=== PATIENT | female | born 1955 | race Two or more races ===

== ENCOUNTER → 2016-12-07 | Outpatient (CLI) | payer OTHER ==
[~2016-12-07] VITALS: Ht 160 cm; Wt 90.7 kg
[~2016-12-07] MED LIST: OMEPRAZOLE40 M1 ORAL; QUINAPRIL HCL10 MG PO; URSODIOL300 MG ORAL; [UNRECOGNIZED DRUG - REMARK] PO
[2016-12-07 08:50] LABS: BASOPHILS % (AUTO) 1.3 % (0.0-2.0); EOSINOPHILS % (AUTO) 3.3 % (0.0-3.0); LYMPHOCYTES % (AUTO) 35.7 % (20.0-45.0); MEAN CORPUSCULAR HEMOGLOBIN 28.8 PG (27.0-31.0); MEAN CORPUSCULAR HGB CONC 31.5 G/DL (32.0-36.0); MEAN CORPUSCULAR VOLUME 92 FL (80-99); MEAN PLATELET VOLUME 7.5 FL (6.5-10.1); MONOCYTES % (AUTO) 7.1 % (1.0-10.0); NEUTROPHILS % (AUTO) 52.6 % (45.0-75.0); PLATELET COUNT 194 K/UL (150-450); WHITE BLOOD COUNT 4.7 K/UL (4.8-10.8)
[2016-12-07 09:03] LABS: INR 1.1 (0.9-1.1); PROTHROMBIN TIME 10.9 SEC (9.30-11.50)
[2016-12-07 09:16] VITALS: BP 123/78
[2016-12-07 12:55] VITALS: BP 133/80
--- NOTE | 2016-12-07 13:33 | Diagnostic Imaging Report ---
Indications: Abdominal distention Technique: Transabdominal real-time grayscale and duplex Doppler imaging of the upper abdomen and retroperitoneum was performed. Findings: Comparison: None. Liver 17 cm in length, and suggestion of mild surface contour nodularity. Diffusely coarsened parenchymal echogenicity. No focal lesions. Gallbladder unremarkable. No intraluminal stones or sludge. No mural thickening or adjacent fluid collections. Sonographic Reyes sign not reported.. Bile ducts normal caliber. Common bile duct 5 mm. Pancreas visualized portions unremarkable. Spleen unremarkable. Right kidney unremarkable. Left kidney unremarkable. Abdominal aorta, intrahepatic portion of inferior vena cava patent, normal caliber. Duplex Doppler imaging demonstrates antegrade flow in splenic, portal, hepatic veins. No ascites. IMPRESSION: Coarsened liver echotexture compatible with chronic hepatocellular disease. Apparent surface contour nodularity suggests cirrhosis. Remainder of exam unremarkable.
== END | disposition home or self-care (01) ==
LOC: ULS 08:24
DX: K76.0 Fatty (change of) liver, not elsewhere classified (principal); R14.0 Abdominal distension (gaseous)
CPT/HCPCS: 36415; 76700; 82962; 85025; 85610; 85730

== ENCOUNTER 2016-12-20 08:34 | Outpatient (CLI) | payer OTHER ==
[2016-12-20] VITALS (18 sets, daily range): BP systolic 123–149; BP diastolic 73–92
[~2016-12-20] VITALS: Ht 160 cm; Wt 59.9 kg
[2016-12-20] MEDS ORDERED: GLIMEPIRIDE1 MG ORAL (09:11)
[2016-12-20] MEDS ORDERED: Midazolam 2mg/2ml Inj ONE (10:28)
[2016-12-20] MEDS ORDERED: fentaNYL 100 mcg/2 mL IV ONE (10:28)
--- NOTE | 2016-12-20 11:09 | Pre-Procedure Note/Attestation ---
Pre-Procedure Note/Attestation Complete Prior to Procedure Planned Procedure: not applicable Procedure Narrative: US guided liver biopsy Indications for Procedure Pre-Operative Diagnosis: fatty liver Attestation I attest that I discussed the nature of the procedure; its benefits; risks and complications; and alternatives (and the risks and benefits of such alternatives ), prior to the procedure, with the patient (or the patient's legal marketing development representative). I attest that, if there was a reasonable possibility of needing a blood transfusion, the patient (or the patient's legal marketing development representative) was given the [facility] standardized written summary, pursuant to the [place] Blood Safety Act ([place] Health and Safety Code # 1645, as amended). I attest that I re-evaluated the patient just prior to the surgery and that there has been no change in the patient's H&P, except as documented below: NORRIS NIXON M.D. December 20, 2016 11:09
--- NOTE | 2016-12-20 11:10 | Moderate Sedation - Procedural ---
Moderate Sedation HPI Chief Complaint Fatty liver HPI Fatty liver Home Medication Reported Medications Glimepiride* (GLIMEPIRIDE*) 1 Mg Tablet, 1 MG ORAL BEFORE BREAKFAST, TAB 12/20/16 Ursodiol (URSODIOL*) 300 Mg Capsule, 300 MG ORAL TWICE A DAY, #30 CAP 0 Refills 12/07/16 Quinapril Hcl (QUINAPRIL HCL) 10 Mg Tablet, 10 MG PO DAILY, TAB 12/07/16 Omeprazole (OMEPRAZOLE) 40 Mg Capsule.dr, 40 MG ORAL DAILY, CAP 12/07/16 Patient History Allergies: Coded Allergies: No Known Allergies (Unverified , 12/07/16) PAST MEDICAL HISTORY: Past Surgeries: Social History: Pre-Procedural Mod Sedation Pre-Assessment Time: 11:00 Pre-Sedation Assessment: Elective Airway Assessment (Malampati): III Evaluation Hx of untoward rxns to mod sed: No Procedures/Plans: Radiology Plan for Moderate Sedation: Midazolam, Fentanyl ASA Score: I Informed Consent The nature of the procedure/sedation; its benefits; risks and complications; and alternatives (and the risks and benefits of such alternatives) were discussed with the patient (or their legal bilingual call center representative), prior to the procedure. All questions were answered to the patient's (or their legal bilingual call center representative's) satisfaction and the patient (or their legal bilingual call center representative) gave informed consent to the procedure. I attest that I re-evaluated the patient just prior to the surgery and that there has been no change in the patient's H&P, except as documented below: Post Procedure Assessment Post Procedure TIme: 12:00 Communication: No Apparent Limitation Mental Status: Awake Respiration: Unlabored Skin Condition: WNL Adomen: WNL Nausea: NO Vomiting: NO NORRIS NIXON M.D. December 20, 2016 11:10
[2016-12-20] MEDS ORDERED: Norco 5mg/325mg tab ORAL PRN ×2 (12:30)
[2016-12-20] MEDS ORDERED: Morphine Sulfate 2mg/ml Inj IVP PRN (12:30)
--- NOTE | 2016-12-20 12:37 | Diagnostic Imaging Report ---
Indication: Fatty liver, a research study patient Technique: Informed consent obtained prior to commencement of the procedure. Procedural timeout performed. Ultrasound used to localize optimal puncture site. Sterile prepping and draping. Local anesthesia, both superficial and deep, with 1% lidocaine. A under real-time ultrasound guidance, total 3 needle passes made into the right hepatic lobe using 16-gauge automated biopsy gun. 3 passes used, due to suboptimal visualization of the needle on each pass due to patient body habitus. Specimens placed in formalin. The patient tolerated the procedure well, without immediate complication. Intraprocedural sedation and analgesia effected using fentanyl and Versed Comparison: None Findings: As above Impression: Apparently successful right lobe liver biopsy for parenchymal disease, as described. Final pathology pending
== END 2016-12-20 15:30 | disposition home or self-care (01) ==
LOC: ULS 08:34
DX: K76.0 Fatty (change of) liver, not elsewhere classified (principal)
CPT/HCPCS: 47000; 76942; 82962; J2250; J3010

== ENCOUNTER 2017-06-14 08:12 | Outpatient (CLI) | payer OTHER ==
[~2017-06-14 08:12] MED LIST changes: +GLIMEPIRIDE1 MG ORAL
[2017-06-14 08:47] LABS: CREATININE 0.6 MG/DL (0.55-1.30); GLOMERULAR FILTRATION RATE > 60 mL/min (>60)
--- NOTE | 2017-06-20 14:52 | Diagnostic Imaging Report ---
Indication: Hypoechoic nodule in left hepatic lobe seen on prior ultrasound Technique: Patient ingested oral contrast. Multiphasic spiral acquisitions obtained through the abdomen . Multiplanar reconstructions were generated. Total dose length product 1717 mGycm. CTDIvol(s) 13, 8, 8, 13, 13, 13 mGy. Radiation dose was minimized using automated exposure control Comparison: None. Note that there is a report available of prior outside images performed at [facility] dated 06/07/2017 describing a 9 mm left lobe liver lesion. A provided CD only contains images of a liver biopsy performed on that date. Findings: The liver demonstrates occasional areas of surface nodularity, most notably in the inferior right hepatic lobe. On the arterial phase images, segment 6 demonstrates a wedge shaped area of very slightly increased enhancement with an associated prominent vessel. No corresponding abnormality demonstrated on the subsequent phases. No focal abnormality is demonstrated that would correspond with the findings described in report of the recent ultrasound. The liver demonstrates normal attenuation on the precontrast images. The gallbladder and bile ducts are unremarkable The pancreas demonstrates a 4 mm diameter fat attenuation lesion in the body tail junction. The spleen and adrenals are unremarkable. There is unusual finding of dense material within the bilateral renal collecting systems on the precontrast images. Layering of this dependently suggested this is liquid, as excreted contrast, rather than calculi. No definite calculi are evident. The kidneys and renal collecting systems are otherwise unremarkable no focal mass demonstrated. No hydronephrosis or proximal hydroureter demonstrated. No retroperitoneal or mesenteric mass or adenopathy demonstrated. The appendix is included in the imaging volume, appears normal. The visualized portions of colon and small bowel appear unremarkable. Numerous ill-defined opacities are seen in the bilateral upper buttock subcutaneous fat The included lung bases demonstrate minimal posterior dependent atelectatic changes. The bones are unremarkable. Impression: CT images do not demonstrate any focal abnormality in the left hepatic lobe that would correspond to the abnormalities described on prior outside ultrasound study. However, outside sonogram describing 9 mm left lobe liver lesion is not available for comparison. If this can be made available, please do so and and an addendum report will be issued. Wedge-shaped area of slightly increased contrast enhancement, on the arterial phase images only, in the periphery of segment 6, most likely an area of arterioportal shunting Hepatic surface nodularity, consistent with known history of cirrhosis 4 mm lipoma within the pancreas Unusual finding of what appears to be a small amount of contrast within the renal collecting systems on the precontrast images. Suspect that this reflects some renal excretion of oral contrast that was absorbed by the small bowel. 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 Siddiqui at the time of interpretation The CT scanner at [facility] is accredited by the [employer] and the scans are performed using protocols designed to limit radiation exposure to as low as reasonably achievable to attain images of sufficient resolution adequate for diagnostic evaluation.
== END 2017-06-14 10:12 | disposition home or self-care (01) ==
LOC: CAT 08:12
DX: K76.0 Fatty (change of) liver, not elsewhere classified (principal)
CPT/HCPCS: 36415; 74170; 82565; 84520; Q9967

== ENCOUNTER 2017-09-19 09:01 | Emergency (ER) | payer SELFPAY ==
[~2017-09-19] VITALS: Ht 160 cm; Wt 63.5 kg
[2017-09-19 09:40] VITALS: BP 136/78
[2017-09-19 10:05] LABS: APPEARANCE,URINE CLEAR; BILIRUBIN, URINE NEGATIVE (NEGATIVE); COLOR,URINE PALE YELLOW; GLUCOSE, URINE (UA) NEGATIVE (NEGATIVE); KETONES,URINE NEGATIVE (NEGATIVE); LEUKOCYTE ESTERASE ,URINE NEGATIVE (NEGATIVE); NITRITE,URINE NEGATIVE (NEGATIVE); PH,URINE 6.5 (4.5-8.0); PROTEIN,URINE NEGATIVE (NEGATIVE); UROBILINOGEN,URINE NORMAL MG/DL (0.0-1.0)
[2017-09-19 10:07] LABS: BASOPHILS % (AUTO) 1.4 % (0.0-2.0); EOSINOPHILS % (AUTO) 2.5 % (0.0-3.0); HEMATOCRIT 44.4 % (37.0-47.0); HEMOGLOBIN 14.1 G/DL (12.0-16.0); LYMPHOCYTES % (AUTO) 38.7 % (20.0-45.0); MEAN CORPUSCULAR VOLUME 90 FL (80-99); MONOCYTES % (AUTO) 7.9 % (1.0-10.0); NEUTROPHILS % (AUTO) 49.5 % (45.0-75.0); PLATELET COUNT 182 K/UL (150-450); RED BLOOD COUNT 4.93 M/UL (4.20-5.40); RED CELL DISTRIBUTION WIDTH 12.5 % (11.6-14.8); WHITE BLOOD COUNT 4.6 K/UL (4.8-10.8)
[2017-09-19 10:13] LABS: ANION GAP 5 mmol/L (5-15); BLOOD UREA NITROGEN 15 mg/dL (7-18); CARBON DIOXIDE 28 MMOL/L (21-32); CHLORIDE 104 MMOL/L (98-107); CREATININE 0.5 MG/DL (0.55-1.30); SODIUM 137 MMOL/L (136-145)
--- NOTE | 2017-09-19 10:13 | Emergency Room Report ---
History of Present Illness General Chief Complaint: Abdominal Pain Source: Patient Present Illness HPI [id number] Sent from primary care doctor for her ultrasound of right upper quadrant, liver complaining of pain to right upper quadrant for 2 weeks Had biopsy done 4 months ago, states she was told she has "grease" in the liver. ?fatty liver. has NAFLD documented in chart but no associated written charts. Per EMR, December 2016 liver biopsy States also "liver marker" test is 14. Denies nausea/vomiting, diarrhea Allergies: Coded Allergies: No Known Allergies (Unverified , 12/07/16) Patient History Past Medical History: none Past Surgical History: none Pertinent Family History: none Social History: Denies: smoking, alcohol use, drug use Last Menstrual Period: na Now: No Immunizations: UTD Reviewed Nursing Documentation: PMH: Agreed, PSxH: Agreed Nursing Documentation-PMH Past Medical History: No History, Except For Hx Cardiac Problems: Yes Hx Hypertension: Yes Hx Diabetes: Yes - TYPE 2 Hx Cancer: No Hx Gastrointestinal Problems: Yes Hx Neurological Problems: No Review of Systems All Other Systems: negative except mentioned in HPI Physical Exam Vital Signs Date Time Temp Pulse Resp B/P (MAP) Pulse Ox O2 Delivery O2 Flow Rate FiO2 09/19/17 09:07 97.9 68 18 144/85 98 Room Air Sp02 EP Interpretation: reviewed, normal General Appearance: normal inspection, well appearing, no apparent distress, alert, GCS 15, non-toxic Head: normocephalic, atraumatic Eyes: bilateral eye PERRL, bilateral eye EOMI ENT: normal ENT inspection, hearing grossly normal, normal pharynx, no angioedema, normal voice, TMs + canals normal, uvula midline, moist mucus membranes Neck: normal inspection, full range of motion, supple, thyroid normal, no meningismus, no bony tend Respiratory: normal inspection, lungs clear, normal breath sounds, no rhonchi, no respiratory distress, no retraction, no accessory muscle use, no wheezing, speaking full sentences Cardiovascular #1: regular rate, rhythm, no edema, no JVD, normal capillary refill Gastrointestinal: normal inspection, normal bowel sounds, soft, no mass, no peritonitis, non-distended, no guarding, no hernia, no pulsatile mass, other - Right upper quadrant tenderness to palpation Genitourinary: no CVA tenderness Musculoskeletal: normal inspection, back normal, normal range of motion, no calf tenderness, pelvis stable, Owen's Sign negative Neurologic: normal inspection, alert, oriented x3, responsive, ems director III-XII nml as tested, motor strength/tone normal, cerebellar normal, normal gait, speech normal Psychiatric: normal inspection, judgement/insight normal, mood/affect normal, no suicidal/homicidal ideation, no delusions Skin: normal inspection, normal color, no rash Lymphatic: normal inspection, no adenopathy Medical Decision Making Diagnostic Impression: Primary Impression: RUQ abdominal pain Additional Impression: Cirrhosis Qualified Codes: K74.60 - Unspecified cirrhosis of liver ER Course Ultrasound today shows hepatic cirrhosis Patient denies previous ETOH abuse, hepatitis Labs with mild LFT abnormalities - nothing requiring acute hospitalization/ management currently Printed copies of both for patient to bring to her PMD for followup ER course: Patient has remained stable during ED stay. Disposition: Patient is to be discharged to home. Patient is instructed to follow up with their primary care doctor within 1-2 days Strict return precautions discussed with patient such as fever, chills, worsening/severe pain, nausea, vomiting, which may indicate severe illness. Patient verbalizes understanding and agrees with plan. Please note that this Emergency Department Report was dictated using [employer] splitter technology software, occasionally this can lead to erroneous entry secondary to interpretation by the dictation equipment Rhythm Strip Diag. Results EP Interpretation: yes Rate: 70 Rhythm: NSR, no PVC's, no ectopy Last Vital Signs Date Time Temp Pulse Resp B/P (MAP) Pulse Ox O2 Delivery O2 Flow Rate FiO2 09/19/17 09:40 97.9 68 19 136/78 99 Room Air Status: improved Disposition: HOME, SELF-CARE Referrals: AZEB SEAMAN (PCP) EJS MARY M.D. Sep 19, 2017 10:13
[2017-09-19 10:17] LABS: ALANINE AMINOTRANSFERASE 87 U/L (12-78); ALBUMIN 3.6 G/DL (3.4-5.0); ALBUMIN/GLOBULIN RATIO 0.9 (1.0-2.7); ALKALINE PHOSPHATASE 133 U/L (46-116); ASPARTATE AMINO TRANSFERASE 48 U/L (15-37); BILIRUBIN,TOTAL 0.6 MG/DL (0.2-1.0)
--- NOTE | 2017-09-19 11:28 | Diagnostic Imaging Report ---
Indication: Right-sided abdominal pain and flank pain Technique: Rios-scale and duplex images of the upper abdomen were obtained Comparison: 12/07/2016 Findings: Gallbladder is unremarkable, without stones, wall thickening, nor pericholecystic fluid. Sonographic Reyes's sign is negative. Common bile duct measures 5 mm in diameter. No intrahepatic biliary ductal dilatation. Liver demonstrates coarsened echogenicity, slight surface micronodularity. No focal abnormality. Portal vein and hepatic veins are patent. Pancreas is unremarkable. Spleen is unremarkable. Left kidney measures 11.2 cm in length. Right kidney measures 11.4 cm length. Both kidneys demonstrate normal echogenicity. There is no hydronephrosis. Right kidney demonstrates small cysts. Questionable small echogenic focus seen in the lower pole parenchyma. Non-aneurysmal abdominal aorta . Findings are unchanged Impression: Evidence of hepatic cirrhosis, with coarsened hepatic echogenicity and surface nodularity, also previously described No definite hepatic focal abnormality Small right renal cysts Negative for gallstones or dilated ducts
[2017-09-19 11:53] VITALS: BP 149/80
== END 2017-09-19 11:57 | disposition home or self-care (01) ==
LOC: EMR 09:45
DX: K74.60 Unspecified cirrhosis of liver (principal); I10 Essential (primary) hypertension; E11.9 Type 2 diabetes mellitus without complications; N28.1 Cyst of kidney, acquired
CPT/HCPCS: 36415; 76700; 80053; 81003; 83690; 85025; 99284

== ENCOUNTER → 2017-12-14 | Outpatient (CLI) | payer OTHER ==
--- NOTE | 2017-12-14 16:16 | Diagnostic Imaging Report ---
Indication: Abdominal distention, history of cirrhosis Technique: Rios-scale and duplex images of the upper abdomen were obtained Comparison: 09/19/2017 Findings: Gallbladder is unremarkable, without stones, wall thickening, nor pericholecystic fluid. Sonographic Reyes's sign is negative. Common bile duct measures 2 mm in diameter. No intrahepatic biliary ductal dilatation. Liver demonstrates coarsened echotexture. Previously reported surface nodularity is less clearly evident currently but was demonstrated previously and on prior CT. No focal abnormality Portal vein and hepatic veins are patent. Pancreas is unremarkable. Spleen is unremarkable. Left kidney measures 11.4 cm in length. Right kidney measures 11.8 cm length. Both kidneys demonstrate normal echogenicity. There is no hydronephrosis. No focal abnormality. Previously demonstrated bilateral renal cysts are not evident on this exam . Non-aneurysmal abdominal aorta . Impression: Coarsened hepatic echogenicity, compatible with hepatocellular disease in patient with previously documented imaging findings suggesting cirrhotic change. No focal abnormality Negative for gallstones or dilated ducts or other significant abnormality
== END | disposition home or self-care (01) ==
LOC: ULS 10:05
DX: K76.0 Fatty (change of) liver, not elsewhere classified (principal)
CPT/HCPCS: 76700

== ENCOUNTER 2018-11-20 08:49 | Outpatient (CLI) | payer OTHER ==
--- NOTE | 2018-11-20 14:17 | Diagnostic Imaging Report ---
Indication: Abdominal pain Technique: Patient ingested oral contrast. Precontrast and multiphasic postcontrast spiral acquisitions obtained through the abdomen Multiplanar reconstructions were generated. Total dose length product 1586.64 mGycm. CTDIvol(s) 12.56,12.56,12.98,13.21 mGy. Radiation dose was minimized using automated exposure control Comparison: 06/14/2017 Findings: No focal hepatic abnormality demonstrated. The subtle area of arterial phase hyperperfusion in segment 6 described on previous exam is not evident on the current study. The liver demonstrates surface nodularity, also reported previously, unchanged. The pancreas again demonstrates a 5 mm fat attenuation focus in the body which appears unchanged. The spleen, adrenals, kidneys are unremarkable. No retroperitoneal or mesenteric mass or adenopathy. The distal esophagus, stomach, duodenum, and visualized segments of bowel are unremarkable. The included lung bases demonstrate minimal posterior dependent atelectatic changes, are otherwise clear. Densities within the bilateral buttock subcutaneous fat are again demonstrated. Previously reported high attenuation material within the renal pelvises on precontrast images are not evident currently Impression: Hepatic surface nodularity, consistent with cirrhotic change, also previously reported No definite focal liver lesion demonstrated Stable fat attenuation pancreatic lesion, presumably a pancreatic lipoma No other significant abnormality demonstrated. No significant interim change from prior study 06/14/[address] scanner at [facility] is accredited by the [employer] and the scans are performed using protocols designed to limit radiation exposure to as low as reasonably achievable to attain images of sufficient resolution adequate for diagnostic evaluation.
== END 2018-11-20 10:49 | disposition home or self-care (01) ==
LOC: ULS 08:49
DX: K76.0 Fatty (change of) liver, not elsewhere classified (principal); R10.9 Unspecified abdominal pain
CPT/HCPCS: 74170; Q9967